=== PATIENT | female | born 2005 | race Caucasian/White ===

== ENCOUNTER 2023-05-08 05:25 | Inpatient (IN) | payer OTHER ==
[2023-05-08] VITALS (502 sets, daily range): BP systolic 118–138; BP diastolic 76–107; PULSE 60–121; TEMP 97.7–97.8; O2SAT 92–99
[~2023-05-08] VITALS: Wt 68.2 kg
[2023-05-08 06:00] LABS: BASO % 0.3 % (0.0-2.0); EOS # 0.1 K/mm3 (0.0-0.7); EOS % 0.5 % (0.0-4.0); GRAN # 9.4 K/mm3 (1.4-6.5); GRAN % 79.2 % (42.2-75.2); HEMATOCRIT 40.5 % (35.0-45.0); HEMOGLOBIN 13.5 g/dl (12.0-15.0); LYMPH # 1.6 K/mm3 (1.2-3.4); LYMPH % 13.9 % (20.0-51.0); MEAN CELL VOLUME 86 fl (80.0-95.0); MEAN CORPUSCULAR HEMOGLOBIN 29 pg (26-32); MEAN CORPUSCULAR HGB CONC 33 g/dl (33.0-37.0); MEAN PLATELET VOLUME 9.8 fl (7.4-10.4); MONO # 0.7 K/mm3 (0.1-0.6); MONO % 5.8 % (1.7-9.3); PLATELET COUNT 250 K/mm3 (130-400); REDCELL DISTRIBUTION WIDTH-CV 13.2 % (11.5-14.5)
[2023-05-08 06:29] LABS: ALANINE AMINOTRANSFERASE 10 U/L (0-55); ALKALINE PHOSPHATASE 64 U/L (40-150); ANION GAP 12 mmol/L (7-16); AST,SGOT 15 U/L (5-34); BILIRUBIN,TOTAL 0.4 mg/dL (0.2-1.2); BLOOD UREA NITROGEN 13 mg/dL (8-21); CALCIUM 10.3 mg/dL (8.4-10.2); CARBON DIOXIDE 20 mmol/L (22-29); CHLORIDE 106 mmol/L (98-107); CREATINE KINASE 70 U/L (29-168); CREATININE, serum 0.88 mg/dL (0.57-1.11); GLUCOSE 90 mg/dL (70-99); POTASSIUM 3.6 mmol/L (3.5-4.5); SODIUM 138 mmol/L (136-145); TOTAL PROTEIN 8.3 gm/dL (6.2-8.1)
[2023-05-08 06:36] LABS: ACETAMINOPHEN < 1.0 ug/mL (10-30); ALCOHOL(ethanol),MEDICAL < 10 mg/dL (0-10); SALICYLATE < 5.0 mg/dL (15.0-30.0)
[2023-05-08 10:00] LABS: COLLECTION METHOD CLEAN CATCH
[2023-05-08 10:13] LABS: SQUAMOUS EPITHELIAL 0-2 /hpf (0-10); URINE APPEARANCE Clear (CLEAR/HAZY); URINE BACTERIA None Seen /hpf (NONE SEEN); URINE BLOOD 3+ (NEGATIVE); URINE COLOR Straw (YELLOW); URINE GLUCOSE Negative (NEGATIVE); URINE KETONE Negative (NEGATIVE); URINE NITRATE Negative (NEGATIVE); URINE PROTEIN(semi-quant) Negative (NEGATIVE); URINE RBC 0-2 /hpf (0-2); URINE UROBILINOGEN 0.2 E.U/dL (0.2-1.0)
[2023-05-08 10:22] LABS: TRICYCLIC ANTIDEPRESS URINE NEGATIVE
[2023-05-08] MEDS ORDERED: LEXAPRO 10MG10 MG PO (10:23)
[2023-05-08] MEDS ORDERED: ENSKYCE 0.15 MG1 TAB PO (10:23)
--- NOTE | 2023-05-08 12:30 | NUR ---
Arrived to the unit from ED. Patient alert and oriented and cooperative with staff at this time. Currently on a precedex drip. Will drift off to sleep but arouses easily with minimal stimulation. Patient's clothing and cell phone were sent to Security. This nurse told patient that she would not be able to have her phone and patient was agreeable. PICC team at bedside to initiate a picc placement. VS stabe; will continue to monitor.
[2023-05-08 18:29] LABS: CALCIUM 8.6 mg/dL (8.4-10.2); CREATININE, serum 0.78 mg/dL (0.57-1.11); POTASSIUM 3.7 mmol/L (3.5-4.5)
--- NOTE | 2023-05-08 20:55 | NUR ---
RECEIVED REPORT FROM CHANO HEBERT RN. PATIENT SLEEPING QUIETLY IN BED AT THIS TIME WITH MOTHER PRESENT AT BEDSIDE. PATIENT REMAINS ON 15 MINUTE CHECKS AND SUICIDE PRECAUTIONS.
--- NOTE | 2023-05-08 21:00 | NUR ---
HEAD TO TOE ASSESSMENT COMPLETED. PATIENT IS DROWSY BUT ORIENTATED WHEN ALERT. PUPILS ARE EQUAL AND REACTIVE BILATERALLY. HEART SOUNDS REGULAR WITH S1 AND S2 NOTED. LUNG SOUNDS ARE CLEAR BILATERALLY TO UPPER AND LOWER LOBES. BOWEL SOUNDS ACTIVE IN ALL QUADRANTS. PULSES ARE PRESENT AND EQUAL IN UPPER AND LOWER EXTREMITIES BILATERALLY. PATIENT HAS NO SKIN CONCERNS AND HAS NO COMPLAINTS OF PAIN AT THIS TIME. PATIENT REMAINS ON SUICIDE PRECAUTIONS AND 15 MINUTE CHECKS.
[2023-05-09] VITALS (449 sets, daily range): BP systolic 99–126; BP diastolic 64–78; PULSE 64–88; TEMP 97.6–98.3; O2SAT 63–100
--- NOTE | 2023-05-09 01:00 | NUR ---
PATIENT ASSISTED UP TO TOILET AT THIS TIME. PATIENT IN A VERY CALM AND PLEASANT MOOD. PATIENT DENIES FEELING NAUSEOUS, DIZZY, OR LIGHTHEADED AT THIS TIME. PATIENT ASSISTED BACK INTO BED AFTER UTILIZING TOILET. PATIENT REMAINS ON SUICIDE PRECAUTIONS AND 15 MINUTE CHECKS.
--- NOTE | 2023-05-09 02:55 | NUR ---
POISON CONTROL UPDATED ON PATIENT CONDITION. WILL CONTINUE TO TITRATE SEDATION DOWN.
[2023-05-09 04:34] LABS: BASO % 0.2 % (0.0-2.0); EOS # 0.1 K/mm3 (0.0-0.7); EOS % 0.7 % (0.0-4.0); GRAN # 5.6 K/mm3 (1.4-6.5); LYMPH # 2.2 K/mm3 (1.2-3.4); LYMPH % 25.3 % (20.0-51.0); MEAN CELL VOLUME 90 fl (80.0-95.0); MEAN CORPUSCULAR HGB CONC 32 g/dl (33.0-37.0); MEAN PLATELET VOLUME 10.2 fl (7.4-10.4); MONO # 0.6 K/mm3 (0.1-0.6); MONO % 7.4 % (1.7-9.3); PLATELET COUNT 172 K/mm3 (130-400); RED BLOOD COUNT 3.27 M/mm3 (4.10-5.30); REDCELL DISTRIBUTION WIDTH-CV 13.4 % (11.5-14.5)
[2023-05-09 04:56] LABS: HEMATOCRIT 29.4 % (35.0-45.0); MEAN CORPUSCULAR HEMOGLOBIN 29 pg (26-32)
[2023-05-09 04:59] LABS: HEMOGLOBIN 9.5 g/dl (12.0-15.0)
[2023-05-09 05:23] LABS: CALCIUM 6.7 mg/dL (8.4-10.2); CREATININE, serum 0.67 mg/dL (0.57-1.11); MAGNESIUM 1.4 mg/dL (1.7-2.2)
[2023-05-09 05:31] LABS: POTASSIUM 2.8 mmol/L (3.5-4.5)
--- NOTE | 2023-05-09 10:31 | NUR ---
Patient transfered up to surgical floor via wheelchair. Alert and oriented and in no distress upon transfer. Met receiving RN in new room upon arrival.
--- NOTE | 2023-05-09 10:39 | NUR ---
PT ARRIVED TO FLOOR FROM ICU. PT IS STABLE, ALERT AND ORIENTED. NO COMPLAINTS OF PAIN AT THIS TIME. RECIEVED BREAKFAST AND CURRENTLY EATING.
--- NOTE | 2023-05-09 13:42 | NUR ---
SW met with pt and her mother, Priscila @ the bedside this afternoon to complete intake assessment. Pt was oriented to person, time and place and tearful, but receptive to talking to SW. Pt reports experiencing SI for sometime with no concrete plan. Pt alluded her depression started in middle school and growing up with a critical father. Pt's mother admitted her marriage with pt's father has been difficult. Mother shared she takes Lexapro for her depression. Pt and her mother were quite guarded when SW attempted to probe pt about how her relationship with her father contributed to her depression. Pt looked at her mother and then looked down at her lap before anwsering. She stated, "it's been hard," but refused to further elaborate except to say her younger sister had a suicide attempt 2 years ago and was hospitalized. Pt stated although she has entertain SI, she has not attempted suicide until yesterday. Pt went on to say that she felt lonely and anxious. She recently transferred from [employer] in [place] to [employer] as a alejandro to major in animal [employer]. Pt stated the move has been stressful and she missed her family and friends. Pt admitted the suicide attempt was an impulsive act, despite having SI for awhile. She indicated she tried to arrange MH counseling a few weeks ago but found the fees too costly. Pt stated she finally scheduled an appointment with a primary care provider who prescribed her Lexapro. Pt denies having SI today, but reports experiencing occ bad dreams, hypersomnia, anxiety, restlessness, tearfulness, helplessness with irritability. Pt indicated she is still interested in ongoing MH counseling in addition to psychotrophic medication post discharge. Pt is aware of the pending psych eval with Noel tomorrow. SW will continue to follow, provide needed support and assist with d/c planning as appropriate.
--- NOTE | 2023-05-09 19:14 | NUR ---
RECEIVED REPORT FROM TAD HEBERT RN. PATIENT IN BED VISITING WITH MOTHER. PATIENT AND MOTHER BOTH DENY NEEDS AT THIS TIME.
--- NOTE | 2023-05-09 19:20 | NUR ---
HEAD TO TOE ASSESSMENT COMPLETED. PATIENT ALERT AND ORIENTATED X4. PATIENT REPORTS SHE IS FEELING "OK". PUPILS ARE EQUAL AND REACTIVE. HEART SOUNDS REGULAR WITH S1 AND S2 NOTED. LUNG SOUNDS ARE CLEAR BILATERALLY IN UPPER AND LOWER LOBES. BOWEL SOUNDS ACTIVE IN ALL QUADRANTS. PULSES ARE PRESENT AND EQUAL BILATERALLY IN UPPER AND LOWER EXTREMITIES. PATIENT HAS NO COMPLAINTS OF PAIN OR OTHER CONCERNS AT THIS TIME. MOTHER IS PRESENT AT BEDSIDE AND PLANS TO RETURN AND STAY THE NIGHT AFTER GETTING DINNER. PATIENT REMAINS ON 15 MINUTE CHECKS AT THIS TIME.
[2023-05-10 03:55] VITALS: BP 126/74; PULSE 67; TEMP 97.8
--- NOTE | 2023-05-10 06:03 | NUR ---
PATIENT HAS HAD AN UNEVENTFUL NIGHT LAYING IN BED SLEEPING MAJORITY OF THE NIGHT. PATIENT WAS UP TO THE BATHROOM SEVERAL TIMES, BRUSHED TEETH INDEPENDENTLY, AND VISITED/WATCHED TV WITH HER MOTHER BEFORE FALLING ASLEEP AROUND 2300. PATIENT'S MOTHER SPENT THE NIGHT AT BEDSIDE. PATIENT CONTINUES ON 15 MINUTE CHECKS AT THIS TIME.
[2023-05-10 07:56] VITALS: BP 110/67; PULSE 70; TEMP 98.1
--- NOTE | 2023-05-10 08:20 | NUR ---
PT LAYING IN BED, ALERT AND ORIENTEDX4. NO COMPLAINTS OF PAIN, NO SUICIDAL THOUGHTS AT THIS TIME.
[2023-05-10 08:47] LABS: CALCIUM 8.5 mg/dL (8.4-10.2); CREATININE, serum 0.68 mg/dL (0.57-1.11); MAGNESIUM 1.7 mg/dL (1.6-2.6)
[2023-05-10 12:08] VITALS: BP 125/76; PULSE 66; TEMP 97.4
--- NOTE | 2023-05-10 14:02 | NUR ---
Draw Off Worker met with Patient and Patient's mother at bedside to introduce self and provide contact information. SW discussed community resources for psychiatric assisttance. Patient requested more information. SW provided resource list for behavioral health assistance in the community. Patient has a psychiatric consult requested for today.
--- NOTE | 2023-05-10 14:10 | NUR ---
PT COMPLAINED OF HAVING A POSSIBLE ALLERGIC REACTION TO THE ADHESIVE FROM HER PICC LINE DRESSING. PT STATED IT WAS ITCHY AND HURTING. THE AREA AROUND THE DRESSING WAS A LITTLE RED. PT STARTED PICKING AT DRESSIN UNTIL IT WAS ALMOST OFF. THIS NURSE CHANGED THE PICC LINE DRESSING USING STERILE TECHNIQUE.
[2023-05-10 15:48] VITALS: BP 114/80; PULSE 90; TEMP 98
--- NOTE | 2023-05-10 17:12 | NUR ---
Mo PARR VISITED WITH PT AND GAVE ME A VERBAL CONFIRMATION THAT THE PT IS NO LONGER A ONE ON ONE PT AND IS CLEARED TO DISCHARGE AFTER FOLLOW UP APPOINTMENTS ARE MADE.
--- NOTE | 2023-05-10 17:58 | NUR ---
PT HAS DISCHARGE ORDERS. PT MADE HER OWN APPOINTMENTS. CHARGE NURSE LEOPOLDO TOOK OUT PICC LINE FROM THE RIGHT UPPER ARM. THIS NURSE TOOK OUT PT IV AND WENT OVER DISCHARGE PAPERWORK. PT LEFT WITH MOTHER.
== END 2023-05-10 18:01 | disposition home or self-care (01) | DRG 918 ==
LOC: COL.ER 05:25 → EDBD 05:26 → COL.ER 05:26 → ICU 07:07 → SURG 07:07 → ICU 12:16 → SURG 05-09 10:30
PROVIDERS: Emergency Medicine; ADMIT Internal Medicine
PROC: 02HV33Z Insertion of Infusion Device into Superior Vena Cava, Percutaneous Approach (ICD-10-PCS; principal; 2023-05-08)
DX: T45.0X2A Poisoning by antiallergic and antiemetic drugs, intentional self-harm, initial encounter (principal); E87.20 Acidosis, unspecified; E87.6 Hypokalemia; E83.42 Hypomagnesemia; F43.23 Adjustment disorder with mixed anxiety and depressed mood
CPT/HCPCS: C1751; J2060; J3475; J3480; J7030; J7120